=== PATIENT | female | born 2000 | race Hispanic/Latino ===

== ENCOUNTER 2024-01-25 21:16 | Emergency (ER) | payer BC, OTHER, SELFPAY ==
[2024-01-25] MEDS ORDERED: Ketorolac Tromethamine 30 MG (1 mL) VIAL ONE (23:16)
[2024-01-25 23:29] LABS: #Basophils 0.05 10x3/uL (0.0-0.2); #Eosinphils 0.05 10x3/uL (0.0-0.5); #Monocytes 0.98 10x3/uL (0.0-1.1); #Neutrophils 5.77 10x3/uL (1.5-8.4); %Basophils 0.5 % (0.0-2.0); %Eosinophils 0.5 % (0.0-6.0); %Monocytes 9.7 % (0.0-10.0); %Neutrophils 57.1 % (40.0-75.0); BHCG - Serum Negative (NEGATIVE); Hematocrit 38.6 % (34.9-44.5); Hemoglobin 13.7 g/dL (12.0-15.5); Mean Corpuscular HGB CONC 35.5 g/dL (32.0-36.0); Mean Corpuscular Hemoglobin 30.1 pg (27.0-33.0); Mean Corpuscular Volume 84.8 fL (81.6-98.3); Mean Platelet Volume 9.7 fL (7.4-10.4); Platelet Count 370 10x3/uL (150-450); Pregs Control Background? CLEAR/WHITE (CLR/WHITE); Pregs Control Bar Appear? YES (CONTROL BAR); RBC Distribution Width 13.1 % (11.5-14.5); Red Blood Cell (RBC) Count 4.55 10x6/uL (3.90-5.03); White Blood Cell (WBC) Count 10.1 10x3/uL (3.5-10.5)
[2024-01-25 23:33] LABS: ALT (SGPT) 8 U/L (8-55); AST (SGOT) 14 U/L (5-34); Albumin 3.9 g/dL (3.5-5.0); Alkaline Phosphatase 59 U/L (40-110); Anion Gap 12 mmol/L (10-20); BUN (Urea Nitrogen) 11 mg/dL (7.0-18.7); Bilirubin, Total 0.2 mg/dL (0.2-1.2); Calc. Creatinine Clearance 0 mL/min (70-130); Calcium 9.6 mg/dL (7.8-10.44); Carbon Dioxide 25 mmol/L (22-29); Chloride 106 mmol/L (98-107); Estimated GFR 127; Globulin 3.2 g/dL (2.4-3.5); Glucose 93 mg/dL (70-105); Potassium 3.5 mmol/L (3.5-5.1); Protein, Total 7.1 g/dL (6.0-8.3); Sodium 139 mmol/L (136-145)
[2024-01-25 23:39] LABS: Troponin I Less than 0.010 ng/mL (< 0.028)
== END 2024-01-26 00:21 | disposition home or self-care (01) ==
LOC: CSHERS 21:16
DX: J20.9 Acute bronchitis, unspecified (principal); R07.9 Chest pain, unspecified; R04.2 Hemoptysis
CPT/HCPCS: 71045; 80053; 84484; 84703; 85025; 85379; 93005; 96374; J1885

== ENCOUNTER 2024-01-26 11:38 | Emergency (ER) | payer SELFPAY ==
[~2024-01-26 11:38] MED LIST: Iopamidol 370 76% 100 ML VIAL ONE
[2024-01-26] MEDS ORDERED: Metoclopramide HCl 10 MG (2 mL) VIAL ONE (12:26)
[2024-01-26] MEDS ORDERED: diphenhydrAMINE 50 MG/ML VIAL ONE (12:26)
[2024-01-26] MEDS ORDERED: Dexamethasone 10 MG/ML VIAL ONE (12:26)
[2024-01-26 12:59] LABS: #Basophils 0.04 10x3/uL (0.0-0.2); #Eosinphils 0.03 10x3/uL (0.0-0.5); #Monocytes 0.72 10x3/uL (0.0-1.1); #Neutrophils 6.08 10x3/uL (1.5-8.4); %Basophils 0.5 % (0.0-2.0); %Eosinophils 0.3 % (0.0-6.0); %Lymphocytes 21.4 % (18.0-47.0); %Monocytes 8.2 % (0.0-10.0); %Neutrophils 69.3 % (40.0-75.0); Hematocrit 39.2 % (34.9-44.5); Hemoglobin 13.8 g/dL (12.0-15.5); Mean Corpuscular HGB CONC 35.2 g/dL (32.0-36.0); Mean Corpuscular Hemoglobin 30.1 pg (27.0-33.0); Mean Corpuscular Volume 85.4 fL (81.6-98.3); Mean Platelet Volume 9.5 fL (7.4-10.4); Platelet Count 364 10x3/uL (150-450); RBC Distribution Width 13.1 % (11.5-14.5); Red Blood Cell (RBC) Count 4.59 10x6/uL (3.90-5.03); White Blood Cell (WBC) Count 8.8 10x3/uL (3.5-10.5)
[2024-01-26 13:22] LABS: Troponin I Less than 0.010 ng/mL (< 0.028)
[2024-01-26 13:45] LABS: Influenza A by NAA Not Detected (NotDetected); Influenza B by NAA Not Detected (NotDetected); SARS-CoV-2 NAA Rapid Test Not Detected (NotDetected)
[2024-01-26 13:48] LABS: ALT (SGPT) 8 U/L (8-55); AST (SGOT) 15 U/L (5-34); Alkaline Phosphatase 58 U/L (40-110); Anion Gap 11 mmol/L (10-20); BUN (Urea Nitrogen) 15 mg/dL (7.0-18.7); Bilirubin, Total 0.4 mg/dL (0.2-1.2); Calc. Creatinine Clearance 0 mL/min (70-130); Calcium 9.5 mg/dL (7.8-10.44); Carbon Dioxide 23 mmol/L (22-29); Chloride 109 mmol/L (98-107); Estimated GFR 129; Globulin 2.8 g/dL (2.4-3.5); Glucose 103 mg/dL (70-105); Potassium 4.4 mmol/L (3.5-5.1); Protein, Total 6.8 g/dL (6.0-8.3); Sodium 139 mmol/L (136-145)
== END 2024-01-26 14:20 | disposition home or self-care (01) ==
LOC: CSHERS 11:38
DX: J32.9 Chronic sinusitis, unspecified (principal)
CPT/HCPCS: 70496; 70498; 80053; 84484; 85025; 96365; 96375; J1100; J1200; J2765; Q9967